=== PATIENT | female | born 1960 | race Hispanic/Latino ===

== ENCOUNTER 2016-03-18 13:42 | Outpatient (CLI) | payer OTHER ==
--- NOTE | 2016-03-18 16:16 | Mammography Report ---
BILATERAL DIGITAL AUGMENTED SCREENING MAMMOGRAM with CAD, LEFT DIGITAL DIAGNOSTIC MAMMOGRAM and LEFT BREAST ULTRASOUND: 03/18/16 13:42:00 CLINICAL: Routine screening.The screening was reviewed at the time of exam and it was determined that a left diagnostic mammogram and left breast ultrasound should be performed. COMPARISON:08/12/11 FINDINGS: Routine views of the right breast without and with implant displacement and routine views of the left breast were performed. The breasts are predominately fatty with a few scattered fibroglandular densities. No mass, architectural distortion or suspicious calcifications of the right breast. Intact right subpectoral implant. No left breast implant is identified and it is uncertain as to whether she ever had a left implant. An oval retroareolar left circumscribed density is identified at screening. Additional spot compression views of the left breast were performed and demonstrated persistent asymmetry. Ultrasound of the left breast (including all four quadrants and the retroareolar area) was performed and demonstrated three benign cysts. A cyst at 6 o'clock 2 cm from the nipple measures 9 x 8 x 6 mm and correlates with the mammographic density. This same cyst was apparently aspirated in 2010 and it is smaller than on the pre-aspiration ultrasound. A subareolar cyst at 12 o'clock measures 4 x 4 by 4 mm and a subareolar cyst at 11:30 o'clock measures 6 x 3 x 6 mm. No solid mass. IMPRESSION: Negative right breast and benign cysts of the left breast. BI-RADS CATEGORY: 2 -- Benign RECOMMENDATION: Routine mammographic screening in one year. ACR BI-RADS MAMMOGRAPHIC CODES: 0 = Needs additional imaging evaluation; 1 = Negative; 2 = Benign; 3 = Probably benign; 4 = Suspicious; 5 = Malignant; 6 = Known biopsy-proven malignancy COMMENT: 1. Dense breast tissue, i.e., adenosis, fibrocystic changes, etc., may obscure an underlying neoplasm. 2. Approximately 10% of cancers are not detected with mammography. 3. A negative mammography report should not delay biopsy if a clinically suspicious mass is present. COMMENT: Patient follow-up letters are generated via our [employer] application.
== END 2016-03-18 13:43 | disposition home or self-care (01) ==
LOC: SPVWC 13:42
PROVIDERS: ATTEND Family Medicine
DX: Z12.31 Encounter for screening mammogram for malignant neoplasm of breast (principal); N60.02 Solitary cyst of left breast
CPT/HCPCS: 76641; G0202; G0206; 77067

== ENCOUNTER 2017-05-25 14:03 | Outpatient (CLI) | payer BC ==
--- NOTE | 2017-05-26 08:07 | Mammography Report ---
BONE DEXA:05/25/17 14:03:00 CLINICAL: Postmenopausal. No comparison. TECHNIQUE: Two site bone DEXA performed on an Hologic scanner. FINDINGS: The average BMD of the lumbar spine L1-L4 is 0.948g/cm squared with a T-score of -0.9 and a Z-score of +0.2. The average BMD of the left hip is 1.017g/cm squared with a T-score of +0.6 and a Z-score of +1.3. IMPRESSION: WHO classification: Normal with average fracture risk based on the spine and left hip measurements. RECOMMENDATION: Clinical correlation and routine screening. DEFINITIONS: BMD = Bone Mineral Density T-score = BMD related to mean peak bone mass of young adult (mean expressed in Standard Deviation) Z-score = Age matched BMD expressed in SD World Health Organization (WHO) Diagnostic Criteria Normal T-score > -1 SD Osteopenia T-score between -1 and -2.4 SD Osteoporosis T-score -2.5 SD or below NOTE: BMD is not the only risk factor for fracture. One should also consider factors such as the patient's age, risk of falling, previous osteoporotic fracture, family history of osteoporotic fractures, current smoker, and low body weight. Z-scores are not calculated if >80 years of age.
--- NOTE | 2017-05-26 11:05 | Ultrasound Report ---
BILATERAL DIGITAL AUGMENTED SCREENING MAMMOGRAM with CAD and LEFT BREAST ULTRASOUND: 05/25/17 14:03:00 CLINICAL: Routine screening. History of left breast cysts and left cyst aspiration 04/13/10. She has a history of a ruptured left implant and states that she has not had removal of the implant. However, she has had mammograms here since 10/16/09 and we have never seen a left implant. COMPARISON:03/18/16, 08/12/11 and 10/16/09 mammograms FINDINGS: Routine screening views on the left and screening views with and without implant displacement on the right demonstrate mostly fatty breasts with a few scattered fibroglandular densities. No mass, architectural distortion or suspicious calcifications. Intact right subpectoral breast implant. Ultrasound of the left breast was performed and demonstrated an oval complex cyst versus solid mass at 8 o'clock 4 cm from the nipple measuring 7 x 7 x 3 mm. There is a low-density circumscribed asymmetry on the mammogram appears to correlate with it. In addition, a cyst at 11 o'clock 5 cm from the nipple measures 4 x 3 x 4 mm. A fluid collection is identified at 6 o'clock 8 cm from the nipple and it measures 2.3 x 0.4 x 2.2 cm is. A similar collection of fluid at 7 o'clock 9 cm from the nipple measures 2.1 x 0.3 x 2.3 cm. These fluid collections have the typical appearance of benign seromas and probably represent fluid retained within portions of an implant capsule. IMPRESSION: 1. A probably benign complex cyst versus solid mass at 8 o'clock 4 cm from the nipple. Recommend six month followup left mammogram and left breast ultrasound. 2. Benign fluid collections of the left breast at 6 o'clock and 7 o'clock are likely related to the presence of a residual implant pocket. 3. Negative right breast with intact breast implant. BI-RADS CATEGORY: 2 -- Benign RECOMMENDATION: Routine mammographic screening in one year. ACR BI-RADS MAMMOGRAPHIC CODES: 0 = Needs additional imaging evaluation; 1 = Negative; 2 = Benign; 3 = Probably benign; 4 = Suspicious; 5 = Malignant; 6 = Known biopsy-proven malignancy COMMENT: 1. Dense breast tissue, i.e., adenosis, fibrocystic changes, etc., may obscure an underlying neoplasm. 2. Approximately 10% of cancers are not detected with mammography. 3. A negative mammography report should not delay biopsy if a clinically suspicious mass is present. COMMENT: Patient follow-up letters are generated via our [employer] application.
== END 2017-05-25 14:04 | disposition home or self-care (01) ==
LOC: SPVWC 14:03
PROVIDERS: ATTEND Family Medicine
DX: Z12.31 Encounter for screening mammogram for malignant neoplasm of breast (principal); Z98.82 Breast implant status; Z78.0 Asymptomatic menopausal state
CPT/HCPCS: 77067; 77080

== ENCOUNTER 2018-11-24 15:51 | Outpatient (CLI) | payer BC ==
--- NOTE | 2018-11-27 12:09 | Mammography Report ---
DIGITAL SCREENING MAMMOGRAM WITH CAD, 11/24/2018 INDICATION: Routine screening mammography. History of a ruptured left breast implant which according the patient has never been removed. However, she has had mammograms here since 10/16/2009 and we have never identified a left breast implant. TECHNIQUE: Digital bilateral 2D mammography was obtained in the craniocaudal and mediolateral obliq ue projections. Right-sided implant displacement views were also obtained. This examination was inter preted with the benefit of Computer-Aided Detection analysis. COMPARISON: 05/25/2017 FINDINGS: Breast Density: There are scattered areas of fibroglandular density. There is no evidence of dominant mass, suspicious calcifications or architectural distortion in eithe r breast. A right subpectoral rest implant is intact. No left breast implant identified. IMPRESSION: No mammographic evidence of malignancy. Follow up recommendation: Routine yearly BI-RADS Category 2: Benign. A "normal" or negative report should not discourage follow up or biopsy of a clinically significant f inding. A written summary of these findings will be mailed to the patient. The patient will be entered into a mammography reporting system which will generate a reminder letter for the patient's next appointmen t at the appropriate interval. The [employer] recommends yearly mammograms starting at age 40 and continuing as l john paul as a woman is in good health. Breast MRI is recommended for women with an approximate 20-25% or greater lifetime risk of breast cancer, including women with a strong family history of breast or ova vidya cancer or who have been treated for Hodgkin's disease. Signer Name: Shyam Maki MD Signed: 11/27/2018 12:04 PM Workstation Name: [id number]
== END 2018-11-24 15:52 | disposition home or self-care (01) ==
LOC: SPVWC 15:51
PROVIDERS: ATTEND Family Medicine
DX: Z12.31 Encounter for screening mammogram for malignant neoplasm of breast (principal)
CPT/HCPCS: 77067

== ENCOUNTER 2020-07-16 10:22 | Outpatient (CLI) | payer BC ==
--- NOTE | 2020-07-16 11:48 | Mammography Report ---
DIGITAL SCREENING MAMMOGRAM WITH CAD, 07/16/2020 CLINICAL INFORMATION / INDICATION: Routine screening mammography. SCREENING TECHNIQUE: Digital bilateral 2D mammography was obtained in the craniocaudal and mediolateral obliqu e projections. This examination was interpreted with the benefit of Computer-Aided Detection analysis . COMPARISON: 03/18/2016 through 11/24/2018. FINDINGS: Breast Density: There are scattered areas of fibroglandular density. No dominant mass, suspicious calcifications, or architectural distortion in either breast. There is a subpectoral saline implant on the right. I do not identify a left implant, which is probab ly collapsed and unchanged. No new abnormality is seen. IMPRESSION: No mammographic evidence of malignancy. Follow up recommendation: Routine yearly BI-RADS Category 2: Benign. A "normal" or negative report should not discourage follow up or biopsy of a clinically significant f inding. A written summary of these findings will be mailed to the patient. The patient will be entered into a mammography reporting system which will generate a reminder letter for the patient's next appointmen t at the appropriate interval. The [employer] recommends yearly mammograms starting at age 40 and continuing as l john paul as a woman is in good health. Breast MRI is recommended for women with an approximate 20-25% or greater lifetime risk of breast cancer, including women with a strong family history of breast or ova vidya cancer or who have been treated for Hodgkin's disease. Signer Name: Connor Wang MD Signed: 07/16/2020 11:43 AM Workstation Name: [id number]
== END 2020-07-16 10:23 | disposition home or self-care (01) ==
LOC: SPVWC 10:22
PROVIDERS: ATTEND Nurse Practitioner Family
DX: Z12.31 Encounter for screening mammogram for malignant neoplasm of breast (principal)
CPT/HCPCS: 77067